=== PATIENT | male | born 1985 | race African-American/Black ===

== ENCOUNTER 2020-07-14 14:28 | Observation (INO) | payer OTHER ==
--- NOTE | 2020-07-14 15:32 | Event Note ---
ED Screening Note Date of service: 07/14/20 Time: 15:31 ED Screening Note: Patient sent here from urgent care for ascites Denies history of liver disease Admits to heavy alcohol intake Patient is jaundiced with icterus on exam Bilateral lower extremity swelling and abdominal distention noted This initial assessment/diagnostic orders/clinical plan/treatment(s) is/are subject to change based on patients health status, clinical progression and re- assessment by fellow clinical providers in the ED. Further treatment and workup at subsequent clinical providers discretion. Patient/guardian urged not to elope from the ED as their condition may be serious if not clinically assessed and managed. Initial orders include: Labs
[2020-07-14 16:17] LABS: Hematocrit 37.4 % (35.5-45.6); Hemoglobin 12.8 gm/dl (11.8-15.2); Red Blood Count 3.69 M/mm3 (3.65-5.03)
[2020-07-14 16:18] LABS: Alanine Aminotransferase 90 units/L (7-56); Albumin 2.6 g/dL (3.9-5); Bilirubin,Direct 4.5 mg/dL (0-0.2); Blood Urea Nitrogen 13 mg/dL (9-20); Calcium 7.8 mg/dL (8.4-10.2); Hemolysis Index 0; Mean Corpuscular HGB Conc 34 % (32-34); Mean Corpuscular Volume 101 fl (84-94); Platelet Count 211 K/mm3 (140-440); Red Cell Distribution Width 17.3 % (13.2-15.2)
[2020-07-14 16:24] LABS: Hepatitis B Surface Antigen Non-Reactive (Negative); Hepatitis C Virus Antibody Non-Reactive (NonReactive)
[2020-07-14 16:25] LABS: BUN/Creatinine Ratio 22
[2020-07-14 17:17] LABS: Anisocytosis 1+; Macrocytosis 1+; Platelet Estimate Consistent w Auto; Poikilocytosis 1+; Target Cells 1+; Total Cells Counted 100
[2020-07-14 17:38] LABS: Bilirubin,Urine MOD (Negative); Blood,Urine NEG (Negative); Color,Urine Amber (Yellow); Mucus,Urine FEW /HPF; Protein,Urine <15 mg/dL mg/dL (Negative)
[2020-07-14 17:41] LABS: Ictotest,Urine Positive (Negative)
[2020-07-14] MEDS ORDERED: FUROSEMIDE 40 MG/4 ML INJ IV ONE (20:21)
[2020-07-14] MEDS ORDERED: SODIUM CHLORIDE 0.9% 500 ML 500 ML IV ONE (20:30)
--- NOTE | 2020-07-14 20:30 | Emergency Department Report ---
ED Abdominal Pain HPI - General Chief Complaint: Abdominal Pain Stated Complaint: DIARRHEA/SWOLLEN LEGS/STOMACH Time Seen by Provider: 07/14/20 15:30 Source: patient Mode of arrival: Ambulatory Limitations: No Limitations - History of Present Illness Initial Comments: Patient is a 35-year-old [place]ian gentleman who is presenting with 1 month of generalized abdominal pain with distention. Patient states he is a heavy drinker and drinks approximately a sixpack of beer +5 shots of hard liquor daily. Patient states over the last month he has developed some abdominal distention and a full type sensation in his abdomen. Denies fevers chills nausea vomiting. Has had some mild diarrhea. He is still making urine. Patient states he does feel uncomfortable with his breathing but the shortness of breath is not consistent. Patient also is noted to have some leg swelling over the last several weeks as well. - Related Data Allergies Allergy/AdvReac Type Severity Reaction Status Date / Time No Known Allergies Allergy Unverified 07/14/20 15:27 ED Review of Systems ROS: Stated complaint: DIARRHEA/SWOLLEN LEGS/STOMACH Other details as noted in HPI Comment: All other systems reviewed and negative ED Past Medical Hx - Past Medical History Previous Medical History?: No - Surgical History Past Surgical History?: No ED Physical Exam - General Limitations: No Limitations General appearance: alert, in no apparent distress - Head Head exam: Present: atraumatic, normocephalic - Eye Eye exam: Present: PERRL, EOMI, scleral icterus - ENT ENT exam: Present: normal exam, mucous membranes moist - Neck Neck exam: Present: normal inspection - Respiratory Respiratory exam: Present: normal lung sounds bilaterally. Absent: respiratory distress, wheezes, rales, rhonchi - Cardiovascular Cardiovascular Exam: Present: regular rate, normal rhythm, normal heart sounds. Absent: systolic murmur, diastolic murmur, rubs, gallop - GI/Abdominal GI/Abdominal exam: Present: distended, tenderness, rigid, normal bowel sounds. Absent: guarding, rebound - Rectal Rectal exam: Present: deferred - Extremities Exam Extremities exam: Present: other (2+ lower extremity edema up to the level of the knees) - Back Exam Back exam: Present: normal inspection - Neurological Exam Neurological exam: Present: alert, oriented X3 - Psychiatric Psychiatric exam: Present: normal affect, normal mood - Skin Skin exam: Present: warm, dry, intact, normal color. Absent: rash ED Course Vital Signs 07/14/20 15:33 Temperature 98.4 F Pulse Rate 123 H Respiratory 18 Rate Blood Pressure 141/96 [Right] O2 Sat by Pulse 97 Oximetry ED Medical Decision Making - Lab Data Result diagrams: 07/14/20 15:33 07/14/20 15:33 Lab Results 07/14/20 07/14/20 07/14/20 Range/Units 15:33 15:33 15:33 WBC 5.0 (4.5-11.0) K/mm3 RBC 3.69 (3.65-5.03) M/mm3 Hgb 12.8 (11.8-15.2) gm/dl Hct 37.4 (35.5-45.6) % MCV 101 H (84-94) fl MCH 35 H (28-32) pg MCHC 34 (32-34) % RDW 17.3 H (13.2-15.2) % Plt Count 211 (140-440) K/mm3 Add Manual Diff Complete Total Counted 100 Seg Neuts % (Manual) 76.0 H (40.0-70.0) % Lymphocytes % (Manual) 17.0 (13.4-35.0) % Monocytes % (Manual) 5.0 (0.0-7.3) % Eosinophils % (Manual) 1.0 (0.0-4.3) % Basophils % (Manual) 1.0 (0.0-1.8) % Nucleated RBC % Not Reportable Seg Neutrophils # Man 3.8 (1.8-7.7) K/mm3 Band Neutrophils # 0.0 K/mm3 Lymphocytes # (Manual) 0.9 L (1.2-5.4) K/mm3 Abs React Lymphs (Man) 0.0 K/mm3 Monocytes # (Manual) 0.3 (0.0-0.8) K/mm3 Eosinophils # (Manual) 0.1 (0.0-0.4) K/mm3 Basophils # (Manual) 0.1 (0.0-0.1) K/mm3 Metamyelocytes # 0.0 K/mm3 Myelocytes # 0.0 K/mm3 Promyelocytes # 0.0 K/mm3 Blast Cells # 0.0 K/mm3 WBC Morphology Not Reportable Hypersegmented Neuts Not Reportable Hyposegmented Neuts Not Reportable Hypogranular Neuts Not Reportable Smudge Cells Not Reportable Toxic Granulation Not Reportable Toxic Vacuolation Not Reportable Dohle Bodies Not Reportable Pelger-Huet Anomaly Not Reportable Gerri Rods Not Reportable Platelet Estimate Consistent w auto Clumped Platelets Not Reportable Plt Clumps, EDTA Not Reportable Large Platelets Not Reportable Giant Platelets Not Reportable Platelet Satelliting Not Reportable Plt Morphology Comment Not Reportable RBC Morphology Not Reportable Dimorphic RBCs Not Reportable Polychromasia Not Reportable Hypochromasia Not Reportable Poikilocytosis 1+ Anisocytosis 1+ Microcytosis Not Reportable Macrocytosis 1+ Spherocytes Not Reportable Pappenheimer Bodies Not Reportable Sickle Cells Not Reportable Target Cells 1+ Tear Drop Cells Not Reportable Ovalocytes Not Reportable Helmet Cells Not Reportable [place] Bodies Not Reportable Martell Rings Not Reportable Cotton Plant Cells Not Reportable Bite Cells Not Reportable Crenated Cell Not Reportable Elliptocytes Not Reportable Acanthocytes (Spur) Not Reportable Rouleaux Not Reportable Hemoglobin C Crystals Not Reportable Schistocytes Not Reportable Malaria parasites Not Reportable Ori Bodies Not Reportable Hem Pathologist Commnt No Sodium 130 L (137-145) mmol/L Potassium 3.6 (3.6-5.0) mmol/L Chloride 96.0 L (98-107) mmol/L Carbon Dioxide 26 (22-30) mmol/L Anion Gap 12 mmol/L BUN 13 (9-20) mg/dL Creatinine 0.6 L (0.8-1.3) mg/dL Estimated GFR > 60 ml/min BUN/Creatinine Ratio 22 % Glucose 123 H (75-100) mg/dL Calcium 7.8 L (8.4-10.2) mg/dL Total Bilirubin 6.50 H (0.1-1.2) mg/dL Direct Bilirubin 4.5 H (0-0.2) mg/dL Indirect Bilirubin 2.0 mg/dL AST 208 H (5-40) units/L ALT 90 H (7-56) units/L Alkaline Phosphatase 501 H (35-129) units/L Troponin T < 0.010 (0.00-0.029) ng/mL Total Protein 5.2 L (6.3-8.2) g/dL Albumin 2.6 L (3.9-5) g/dL Albumin/Globulin Ratio 1.0 % Lipase 44 (13-60) units/L Urine Color (Yellow) Urine Turbidity (Clear) Urine pH (5.0-7.0) Ur Specific [place] (1.003-1.030) Urine Protein (Negative) mg/dL Urine Glucose (UA) (Negative) mg/dL Urine Ketones (Negative) mg/dL Urine Blood (Negative) Urine Nitrite (Negative) Urine Bilirubin (Negative) Urine Ictotest (Negative) Urine Urobilinogen (<2.0) mg/dL Ur Leukocyte Esterase (Negative) Urine WBC (Auto) (0.0-6.0) /HPF Urine RBC (Auto) (0.0-6.0) /HPF U Epithel Cells (Auto) (0-13.0) /HPF Urine Mucus /HPF Hepatitis A IgM Ab (NonReactive) Hep Bs Antigen (Negative) Hep B Core IgM Ab (NonReactive) Hepatitis C Antibody (NonReactive) 07/14/20 07/14/20 Range/Units 15:33 17:09 WBC (4.5-11.0) K/mm3 RBC (3.65-5.03) M/mm3 Hgb (11.8-15.2) gm/dl Hct (35.5-45.6) % MCV (84-94) fl MCH (28-32) pg MCHC (32-34) % RDW (13.2-15.2) % Plt Count (140-440) K/mm3 Add Manual Diff Total Counted Seg Neuts % (Manual) (40.0-70.0) % Lymphocytes % (Manual) (13.4-35.0) % Monocytes % (Manual) (0.0-7.3) % Eosinophils % (Manual) (0.0-4.3) % Basophils % (Manual) (0.0-1.8) % Nucleated RBC % Seg Neutrophils # Man (1.8-7.7) K/mm3 Band Neutrophils # K/mm3 Lymphocytes # (Manual) (1.2-5.4) K/mm3 Abs React Lymphs (Man) K/mm3 Monocytes # (Manual) (0.0-0.8) K/mm3 Eosinophils # (Manual) (0.0-0.4) K/mm3 Basophils # (Manual) (0.0-0.1) K/mm3 Metamyelocytes # K/mm3 Myelocytes # K/mm3 Promyelocytes # K/mm3 Blast Cells # K/mm3 WBC Morphology Hypersegmented Neuts Hyposegmented Neuts Hypogranular Neuts Smudge Cells Toxic Granulation Toxic Vacuolation Dohle Bodies Pelger-Huet Anomaly Gerri Rods Platelet Estimate Clumped Platelets Plt Clumps, EDTA Large Platelets Giant Platelets Platelet Satelliting Plt Morphology Comment RBC Morphology Dimorphic RBCs Polychromasia Hypochromasia Poikilocytosis Anisocytosis Microcytosis Macrocytosis Spherocytes Pappenheimer Bodies Sickle Cells Target Cells Tear Drop Cells Ovalocytes Helmet Cells Santamaria-[place] Bodies Martell Rings Cotton Plant Cells Bite Cells Crenated Cell Elliptocytes Acanthocytes (Spur) Rouleaux Hemoglobin C Crystals Schistocytes Malaria parasites Ori Bodies Hem Pathologist Commnt Sodium (137-145) mmol/L Potassium (3.6-5.0) mmol/L Chloride (98-107) mmol/L Carbon Dioxide (22-30) mmol/L Anion Gap mmol/L BUN (9-20) mg/dL Creatinine (0.8-1.3) mg/dL Estimated GFR ml/min BUN/Creatinine Ratio % Glucose (75-100) mg/dL Calcium (8.4-10.2) mg/dL Total Bilirubin (0.1-1.2) mg/dL Direct Bilirubin (0-0.2) mg/dL Indirect Bilirubin mg/dL AST (5-40) units/L ALT (7-56) units/L Alkaline Phosphatase (35-129) units/L Troponin T (0.00-0.029) ng/mL Total Protein (6.3-8.2) g/dL Albumin (3.9-5) g/dL Albumin/Globulin Ratio % Lipase (13-60) units/L Urine Color [place] (Yellow) Urine Turbidity Clear (Clear) Urine pH 5.0 (5.0-7.0) Ur Specific [place] 1.026 (1.003-1.030) Urine Protein <15 mg/dl (Negative) mg/dL Urine Glucose (UA) Neg (Negative) mg/dL Urine Ketones Neg (Negative) mg/dL Urine Blood Neg (Negative) Urine Nitrite Neg (Negative) Urine Bilirubin Mod (Negative) Urine Ictotest Positive (Negative) Urine Urobilinogen 4.0 (<2.0) mg/dL Ur Leukocyte Esterase Neg (Negative) Urine WBC (Auto) 3.0 (0.0-6.0) /HPF Urine RBC (Auto) 1.0 (0.0-6.0) /HPF U Epithel Cells (Auto) < 1.0 (0-13.0) /HPF Urine Mucus Few /HPF Hepatitis A IgM Ab Non-reactive (NonReactive) Hep Bs Antigen Non-reactive (Negative) Hep B Core IgM Ab Non-reactive (NonReactive) Hepatitis C Antibody Non-reactive (NonReactive) - Radiology Data Ordering Physician: ATIF SUMMERS MD Date of Service: 07/14/20 Procedure(s): CT abdomen pelvis w con Accession Number(s): [id number] cc: ATIF SUMMERS MD CT abdomen pelvis w con INDICATION: abd pain with distension. TECHNIQUE: All CT scans at this location are performed using CT dose reduction for ALARA by means of automated exposure control. COMPARISON: None available. FINDINGS: Bibasilar parenchymal density is probably atelectasis. However, there are very small bilateral pleural effusions. Mild ascites throughout the abdomen and pelvis. Gallbladder is mildly distended, with no appreciable stones. Liver, spleen, pancreas, kidneys and adrenals are negative. Abdominal aorta is normal in size. No adenopathy. Pelvis Urinary bladder is almost completely collapsed. Ascites occupies most of the pelvis. There is also diffuse mesenteric edema. IMPRESSION: 1. Moderate ascites and mesenteric edema, of uncertain etiology. Signer Name: Sandip Garcia MD Signed: 07/14/2020 8:48 PM Workstation Name: [id number] - Medical Decision Making Patient with new onset alcoholic hepatitis. Patient with some third spacing with ascites and lower extremity edema. Patient to be admitted to the hospitalist service for further management. Critical care attestation.: If time is entered above; I have spent that time in minutes in the direct care of this critically ill patient, excluding procedure time. ED Disposition Clinical Impression: Alcoholic hepatitis with ascites, Hyponatremia, Alcohol abuse Disposition: OP ADMIT IP TO THIS HOSP Is pt being admited?: Yes Does the pt Need Aspirin: No Condition: Serious Time of Disposition: 21:39
[2020-07-14] MEDS ORDERED: KETOROLAC 30 MG/1 ML INJ IV ONE (20:31)
--- NOTE | 2020-07-14 20:52 | Cat Scan Report ---
CT abdomen pelvis w con INDICATION: abd pain with distension. TECHNIQUE: All CT scans at this location are performed using CT dose reduction for ALARA by means of automated e xposure control. COMPARISON: None available. FINDINGS: Bibasilar parenchymal density is probably atelectasis. However, there are very small bilateral pleura l effusions. Mild ascites throughout the abdomen and pelvis. Gallbladder is mildly distended, with no appreciable stones. Liver, spleen, pancreas, kidneys and adrenals are negative. Abdominal aorta is normal in size . No adenopathy. Pelvis Urinary bladder is almost completely collapsed. Ascites occupies most of the pelvis. There is also di ffuse mesenteric edema. IMPRESSION: 1. Moderate ascites and mesenteric edema, of uncertain etiology. Signer Name: Sandip Garcia MD Signed: 07/14/2020 8:48 PM Workstation Name: [id number]
--- NOTE | 2020-07-14 21:09 | XRay Report ---
CHEST 1 VIEW INDICATION: dyspnea COMPARISON: None FINDINGS: Support devices: None Heart: Normal Lungs/Pleura: No acute pulmonary or pleural findings. Linear density in the left base is most suggest grayson of atelectasis or even scarring. IMPRESSION: 1. No convincing evidence of acute disease. It may be worthwhile to follow-up with chest radiograph i n 2-3 weeks to evaluate the left basilar process. Signer Name: Sandip Garcia MD Signed: 07/14/2020 9:04 PM Workstation Name: [id number]
[2020-07-14 21:30] LABS: INR 1.18 (0.87-1.13)
[2020-07-14 21:31] LABS: Partial Thromboplastin Time 29.7 Sec. (24.2-36.6)
[2020-07-14] MEDS ORDERED: LORazepam 2 MG TAB PO PRN ×2 (21:40)
[2020-07-14] MEDS ORDERED: LORazepam 2 MG/ML VIAL IV PRN (21:40)
[2020-07-14] MEDS ORDERED: ONDANSETRON 4 MG/2 ML INJ IV PRN (22:02)
[2020-07-14] MEDS ORDERED: MORPHINE 2 MG/1 ML INJ IV PRN (22:02)
[2020-07-14] MEDS ORDERED: MAGNESIUM HYDROXIDE (MOM) ORAL LIQD UDC PO PRN (22:02)
--- NOTE | 2020-07-14 22:15 | History and Physical Report ---
History of Present Illness Date of examination: 07/14/20 Date of admission: 07/14/2020 Chief complaint: Abdominal Pain Lower extremity swelling History of present illness: Patient is a 35-year-old [place] male presenting to the emergency room today complaining of abdominal distention and pain. Patient states this has been ongoing for about a month. He has also been having lower extremity swelling. Patient drinks alcohol almost on a daily basis. He is drinks about sixpack of beer and 5 shots of liquor daily. His last alcohol intake was about 2 days ago. Patient denies any fever or chills, no chest pain, no nausea vomiting, no diarrhea, no hematuria or dysuria. He denies any headache or dizziness. He has been uncomfortable with his breathing because of the abdominal swelling. Work-up in the emergency room today, chest x-ray reveals:No convincing evidence of acute disease. It may be worthwhile to follow-up with chest radiograph in 2-3 weeks to evaluate the left basilar process. CT scan of the abdomen and pelvis: Moderate ascites and mesenteric edema, of uncertain etiology. Labs reveals elevated bilirubin and liver enzymes. Mild hyponatremia. Patient be admitted for abdominal distention secondary to ascites and the hyponatremia. Past History Past Medical History: No medical history Past Surgical History: No surgical history Social history: smoking (Patient smokes about half a pack of cigarette daily.), alcohol abuse (Patient drinks on a daily basis. He drinks about 5-6 packs of beer daily +5 shots of hard liquor.) Family history: no significant family history Medications and Allergies Allergies Allergy/AdvReac Type Severity Reaction Status Date / Time No Known Allergies Allergy Verified 07/14/20 22:12 Active Meds: Active Medications Lorazepam (Lorazepam 2 Mg Tab) 2 mg PO Q1HR PRN PRN Reason: CIWA-Ar 8-15 Lorazepam (Lorazepam 2 Mg Tab) 4 mg PO Q1HR PRN PRN Reason: CIWA-Ar 16-25 Lorazepam (Lorazepam 2 Mg/Ml Vial) 4 mg IV Q15MIN PRN PRN Reason: CIWA-Ar >25 Magnesium Hydroxide (Magnesium Hydroxide (Mom) Oral Liqd Udc) 30 ml PO Q4H PRN PRN Reason: Constipation Morphine Sulfate (Morphine 2 Mg/1 Ml Inj) 2 mg IV Q4H PRN PRN Reason: Pain, Moderate (4-6) Ondansetron HCl (Ondansetron 4 Mg/2 Ml Inj) 4 mg IV Q8H PRN PRN Reason: Nausea And Vomiting Sodium Chloride (Sodium Chloride 0.9% 10 Ml Flush Syringe) 10 ml IV BID SUNDAR Sodium Chloride (Sodium Chloride 0.9% 10 Ml Flush Syringe) 10 ml IV PRN PRN PRN Reason: LINE FLUSH Review of Systems Constitutional: no fever, no chills Ears, nose, mouth and throat: no nasal congestion, no sore throat Cardiovascular: no chest pain, no palpitations Respiratory: no cough, no shortness of breath Gastrointestinal: abdominal pain, no nausea, no vomiting, no diarrhea Genitourinary Male: no dysuria, no hematuria, no flank pain, no polyuria Musculoskeletal: no neck pain, no low back pain Integumentary: no rash, no pruritis Neurological: no headaches, no confusion Psychiatric: no anxiety, no depression Exam - Constitutional Vitals: Temp Pulse Resp BP Pulse Ox 98.7 F 99 H 18 139/90 99 07/14/20 21:49 07/14/20 21:49 07/14/20 21:49 07/14/20 21:49 07/14/20 21:49 General appearance: Present: no acute distress, well-nourished - EENT Eyes: Present: PERRL, EOM intact, scleral icterus ENT: hearing intact, clear oral mucosa, dentition normal - Neck Neck: Present: supple, normal ROM - Respiratory Respiratory effort: normal Respiratory: bilateral: CTA - Cardiovascular Rhythm: regular Heart Sounds: Present: S1 & S2. Absent: gallop, systolic murmur, diastolic murmur, rub - Extremities Extremities: no ischemia, pulses intact, pulses symmetrical, Full ROM Extremity abnormal: edema (2+) Peripheral Pulses: within normal limits - Abdominal General gastrointestinal: Present: soft, tender (Epigastric tenderness), distended, normal bowel sounds. Absent: mass - Integumentary Integumentary: Present: clear, warm, dry. Absent: rash - Musculoskeletal Musculoskeletal: strength equal bilaterally - Psychiatric Psychiatric: appropriate mood/affect, intact judgment & insight, memory intact, cooperative - Neurologic Neurologic: CNII-XII intact, no focal deficits, moves all extremities HEART Score - HEART Score Troponin: Troponin T < 0.010 ng/mL (0.00-0.029) 07/14/20 15:33 Results - Labs CBC & Chem 7: 07/15/20 08:18 07/15/20 08:18 Labs: Abnormal lab results 07/14/20 07/14/20 07/14/20 Range/Units 15:33 15:33 20:46 MCV 101 H (84-94) fl MCH 35 H (28-32) pg RDW 17.3 H (13.2-15.2) % Seg Neuts % (Manual) 76.0 H (40.0-70.0) % Lymphocytes # (Manual) 0.9 L (1.2-5.4) K/mm3 INR 1.18 H (0.87-1.13) Sodium 130 L (137-145) mmol/L Chloride 96.0 L (98-107) mmol/L Creatinine 0.6 L (0.8-1.3) mg/dL Glucose 123 H (75-100) mg/dL Calcium 7.8 L (8.4-10.2) mg/dL Total Bilirubin 6.50 H (0.1-1.2) mg/dL Direct Bilirubin 4.5 H (0-0.2) mg/dL AST 208 H (5-40) units/L ALT 90 H (7-56) units/L Alkaline Phosphatase 501 H (35-129) units/L Total Protein 5.2 L (6.3-8.2) g/dL Albumin 2.6 L (3.9-5) g/dL Plasma/Serum Alcohol (0-0.07) % 07/14/20 Range/Units 20:46 MCV (84-94) fl MCH (28-32) pg RDW (13.2-15.2) % Seg Neuts % (Manual) (40.0-70.0) % Lymphocytes # (Manual) (1.2-5.4) K/mm3 INR (0.87-1.13) Sodium (137-145) mmol/L Chloride (98-107) mmol/L Creatinine (0.8-1.3) mg/dL Glucose (75-100) mg/dL Calcium (8.4-10.2) mg/dL Total Bilirubin (0.1-1.2) mg/dL Direct Bilirubin (0-0.2) mg/dL AST (5-40) units/L ALT (7-56) units/L Alkaline Phosphatase (35-129) units/L Total Protein (6.3-8.2) g/dL Albumin (3.9-5) g/dL Plasma/Serum Alcohol 0.13 H (0-0.07) % Assessment and Plan - Patient Problems (1) Alcoholic hepatitis with ascites Current Visit: Yes Status: Acute Plan to address problem: We will monitor liver enzymes. We will place a consult to gastroenterology for evaluation. Patient may need paracentesis. Consult placed to interventional radiology for evaluation. (2) Alcohol abuse Current Visit: Yes Status: Acute Plan to address problem: We will monitor patient for alcohol withdrawal symptoms. (3) Hyponatremia Current Visit: Yes Status: Acute Plan to address problem: Possibly secondary to the alcohol abuse. Will monitor chemistry. (4) DVT prophylaxis Current Visit: Yes Status: Acute Plan to address problem: Patient placed on sequential compression device. (5) Full code status Current Visit: Yes Status: Acute Plan to address problem: Patient is a full code.
[2020-07-14 23:01] LABS: Albumin 2.6 g/dL (3.9-5); Bilirubin,Direct 4.3 mg/dL (0-0.2)
[2020-07-15 09:01] LABS: INR 1.08 (0.87-1.13)
[2020-07-15 09:02] LABS: Hematocrit 35.2 % (35.5-45.6); Hemoglobin 12.4 gm/dl (11.8-15.2); Mean Corpuscular HGB Conc 35 % (32-34); Mean Corpuscular Volume 101 fl (84-94); Platelet Count 212 K/mm3 (140-440); Red Blood Count 3.49 M/mm3 (3.65-5.03); Red Cell Distribution Width 18.1 % (13.2-15.2)
[2020-07-15 09:11] LABS: Blood Urea Nitrogen 12 mg/dL (9-20); Calcium 7.8 mg/dL (8.4-10.2); Hemolysis Index 0
[2020-07-15 09:13] LABS: BUN/Creatinine Ratio 20
--- NOTE | 2020-07-15 09:58 | Consultation ---
History of Present Illness - Reason for Consult Consult date: 07/15/20 Ascites - History of Present Illness Patient with a history of alcohol abuse and new onset ascites. CT scan reviewed and the patient has moderate ascites. He complains of subxiphoid abdominal pain. Abdomen is otherwise nontender to palpation. Patient has never undergone paracentesis. He is not under the care of a weir fisherman. Past History Past Medical History: No medical history Past Surgical History: No surgical history Social history: smoking (Patient smokes about half a pack of cigarette daily.), alcohol abuse (Patient drinks on a daily basis. He drinks about 5-6 packs of beer daily +5 shots of hard liquor.) Family history: no significant family history Medications and Allergies Allergies Allergy/AdvReac Type Severity Reaction Status Date / Time No Known Allergies Allergy Verified 07/14/20 22:12 Active Meds: Active Medications Lorazepam (Lorazepam 2 Mg Tab) 2 mg PO Q1HR PRN PRN Reason: CIWA-Ar 8-15 Lorazepam (Lorazepam 2 Mg Tab) 4 mg PO Q1HR PRN PRN Reason: CIWA-Ar 16-25 Lorazepam (Lorazepam 2 Mg/Ml Vial) 4 mg IV Q15MIN PRN PRN Reason: CIWA-Ar >25 Magnesium Hydroxide (Magnesium Hydroxide (Mom) Oral Liqd Udc) 30 ml PO Q4H PRN PRN Reason: Constipation Morphine Sulfate (Morphine 2 Mg/1 Ml Inj) 2 mg IV Q4H PRN PRN Reason: Pain, Moderate (4-6) Ondansetron HCl (Ondansetron 4 Mg/2 Ml Inj) 4 mg IV Q8H PRN PRN Reason: Nausea And Vomiting Sodium Chloride (Sodium Chloride 0.9% 10 Ml Flush Syringe) 10 ml IV BID SUNDAR Sodium Chloride (Sodium Chloride 0.9% 10 Ml Flush Syringe) 10 ml IV PRN PRN PRN Reason: LINE FLUSH Review of Systems All systems: negative Exam - Constitutional Vitals: Temp Pulse Resp BP Pulse Ox 98.1 F 84 18 133/98 98 07/15/20 02:41 07/15/20 08:32 07/15/20 02:41 07/15/20 02:41 07/15/20 02:41 General appearance: Present: no acute distress - EENT Eyes: Present: EOM intact ENT: hearing intact - Neck Neck: Present: normal ROM - Abdominal General gastrointestinal: Present: non-tender, distended - Psychiatric Psychiatric: cooperative Results - Labs CBC & Chem 7: 07/15/20 08:18 07/15/20 08:18 Labs: Abnormal lab results 07/14/20 07/14/20 07/14/20 Range/Units 15:33 15:33 20:46 RBC (3.65-5.03) M/mm3 Hct (35.5-45.6) % MCV 101 H (84-94) fl MCH 35 H (28-32) pg MCHC (32-34) % RDW 17.3 H (13.2-15.2) % Seg Neuts % (Manual) 76.0 H (40.0-70.0) % Lymphocytes # (Manual) 0.9 L (1.2-5.4) K/mm3 INR 1.18 H (0.87-1.13) Sodium 130 L (137-145) mmol/L Potassium (3.6-5.0) mmol/L Chloride 96.0 L (98-107) mmol/L Creatinine 0.6 L (0.8-1.3) mg/dL Glucose 123 H (75-100) mg/dL Calcium 7.8 L (8.4-10.2) mg/dL Total Bilirubin 6.50 H (0.1-1.2) mg/dL Direct Bilirubin 4.5 H (0-0.2) mg/dL AST 208 H (5-40) units/L ALT 90 H (7-56) units/L Alkaline Phosphatase 501 H (35-129) units/L Total Protein 5.2 L (6.3-8.2) g/dL Albumin 2.6 L (3.9-5) g/dL Plasma/Serum Alcohol (0-0.07) % 07/14/20 07/14/20 07/15/20 Range/Units 20:46 20:46 08:18 RBC 3.49 L (3.65-5.03) M/mm3 Hct 35.2 L (35.5-45.6) % MCV 101 H (84-94) fl MCH 36 H (28-32) pg MCHC 35 H (32-34) % RDW 18.1 H (13.2-15.2) % Seg Neuts % (Manual) (40.0-70.0) % Lymphocytes # (Manual) (1.2-5.4) K/mm3 INR (0.87-1.13) Sodium (137-145) mmol/L Potassium (3.6-5.0) mmol/L Chloride (98-107) mmol/L Creatinine (0.8-1.3) mg/dL Glucose (75-100) mg/dL Calcium (8.4-10.2) mg/dL Total Bilirubin 6.60 H (0.1-1.2) mg/dL Direct Bilirubin 4.3 H (0-0.2) mg/dL AST 211 H (5-40) units/L ALT 87 H (7-56) units/L Alkaline Phosphatase 533 H (35-129) units/L Total Protein 5.0 L (6.3-8.2) g/dL Albumin 2.6 L (3.9-5) g/dL Plasma/Serum Alcohol 0.13 H (0-0.07) % 07/15/20 Range/Units 08:18 RBC (3.65-5.03) M/mm3 Hct (35.5-45.6) % MCV (84-94) fl MCH (28-32) pg MCHC (32-34) % RDW (13.2-15.2) % Seg Neuts % (Manual) (40.0-70.0) % Lymphocytes # (Manual) (1.2-5.4) K/mm3 INR (0.87-1.13) Sodium 132 L (137-145) mmol/L Potassium 3.4 L (3.6-5.0) mmol/L Chloride 95.9 L (98-107) mmol/L Creatinine 0.6 L (0.8-1.3) mg/dL Glucose 104 H (75-100) mg/dL Calcium 7.8 L (8.4-10.2) mg/dL Total Bilirubin (0.1-1.2) mg/dL Direct Bilirubin (0-0.2) mg/dL AST (5-40) units/L ALT (7-56) units/L Alkaline Phosphatase (35-129) units/L Total Protein (6.3-8.2) g/dL Albumin (3.9-5) g/dL Plasma/Serum Alcohol (0-0.07) % - Imaging and Cardiology CT scan - abdomen: image reviewed CT scan - pelvis: image reviewed Assessment and Plan Patient with history of alcohol abuse and new onset ascites. GI has been consulted. Patient CT scan demonstrates sequela of portal hypertension with moderate amount of ascites. He will be scheduled for paracentesis tomorrow with diagnostic radiology.
[2020-07-15 10:41] LABS: Anisocytosis 1+; Macrocytosis 1+; Poikilocytosis 1+; Target Cells 1+; Total Cells Counted 100
[2020-07-15 10:42] LABS: Platelet Estimate Consistent w Auto
--- NOTE | 2020-07-15 11:02 | Gastroenterology Consultation ---
History of Present Illness - Reason for Consult Consult date: 07/15/20 Ascites Requesting physician: JEFF TEIXEIRA - History of Present Illness This is a pleasant 35-year-old admitted with abdominal distention and pain. Patient states this has been ongoing for about a month. He has also been having lower extremity swelling for the past 2 to 3 days Patient drinks alcohol almost on a daily basis. He is drinks about sixpack of beer and 4-5 shots of liquor daily. He reports however for New Year's he had friends over and they all drink shots, he could not quantify how much alcohol he drank but said it was a lot Reports he has been drinking for the past 14 years other than a 1 month period where he was away working in [place] where he did not drink but once he came back here to his friends who also drink he started drinking again He reports since then abdominal swelling and lower extremity swelling getting worse quicker and accompanied by yellowing of the eyes. He reports never having had experienced before Reports epigastric abdominal pain constant worse with palpation better with nothing duration days associated with abdominal distention sharp in quality nonradiating, stable CT scan of the abdomen and pelvis: Moderate ascites and mesenteric edema, of uncertain etiology. Labs reveals elevated bilirubin and liver enzymes. Mild hyponatremia. Obtained/updated/reviewed patient's current medications Past History Past Medical History: No medical history, other (EtOh abuse) Past Surgical History: No surgical history Social history: smoking (Patient smokes about half a pack of cigarette daily.), alcohol abuse (Patient drinks on a daily basis. He drinks about 5-6 packs of beer daily +5 shots of hard liquor.) Family history: no significant family history Medications and Allergies Allergies Allergy/AdvReac Type Severity Reaction Status Date / Time No Known Allergies Allergy Verified 07/14/20 22:12 Active Meds: Active Medications Lorazepam (Lorazepam 2 Mg Tab) 2 mg PO Q1HR PRN PRN Reason: CIWA-Ar 8-15 Last Admin: 07/15/20 10:13 Dose: 2 mg Documented by: Lorazepam (Lorazepam 2 Mg Tab) 4 mg PO Q1HR PRN PRN Reason: CIWA-Ar 16-25 Lorazepam (Lorazepam 2 Mg/Ml Vial) 4 mg IV Q15MIN PRN PRN Reason: CIWA-Ar >25 Magnesium Hydroxide (Magnesium Hydroxide (Mom) Oral Liqd Udc) 30 ml PO Q4H PRN PRN Reason: Constipation Morphine Sulfate (Morphine 2 Mg/1 Ml Inj) 2 mg IV Q4H PRN PRN Reason: Pain, Moderate (4-6) Ondansetron HCl (Ondansetron 4 Mg/2 Ml Inj) 4 mg IV Q8H PRN PRN Reason: Nausea And Vomiting Sodium Chloride (Sodium Chloride 0.9% 10 Ml Flush Syringe) 10 ml IV BID SUNDAR Last Admin: 07/15/20 10:13 Dose: 10 ml Documented by: Sodium Chloride (Sodium Chloride 0.9% 10 Ml Flush Syringe) 10 ml IV PRN PRN PRN Reason: LINE FLUSH Review of Systems - Review of Systems All systems: negative (10 Systems reviewed and negative except as mentioned above in the history of present illness) Exam - Constitutional Vital Signs: Temp Pulse Resp BP Pulse Ox 98.1 F 84 18 133/98 98 07/15/20 02:41 07/15/20 08:32 07/15/20 02:41 07/15/20 02:41 07/15/20 02:41 General appearance: other (Fetor hepaticus, mildly jaundiced) - EENT Eyes: scleral icterus - Neck Neck: supple - Respiratory Respiratory effort: normal - Cardiovascular Rhythm: regular Extremity abnormal: edema, clubbing - Gastrointestinal General gastrointestinal: Present: other (Slight fluid wave, tense, tender to palpation in the upper abdominal area) - Integumentary Integumentary: Present: dry, jaundice - Musculoskeletal Musculoskeletal: other (Clubbing of the digits otherwise normal) - Neurologic Neurological: alert and oriented x3 - Psychiatric Psychiatric: appropriate mood/affect - Labs CBC & Chem 7: 07/15/20 08:18 07/15/20 08:18 Lab Results: Laboratory Results - last 24 hr 07/14/20 07/14/20 07/14/20 15:33 15:33 15:33 WBC 5.0 RBC 3.69 Hgb 12.8 Hct 37.4 MCV 101 H MCH 35 H MCHC 34 RDW 17.3 H Plt Count 211 Add Manual Diff Complete Total Counted 100 Seg Neuts % (Manual) 76.0 H Lymphocytes % (Manual) 17.0 Monocytes % (Manual) 5.0 Eosinophils % (Manual) 1.0 Basophils % (Manual) 1.0 Nucleated RBC % Not Reportable Seg Neutrophils # Man 3.8 Band Neutrophils # 0.0 Lymphocytes # (Manual) 0.9 L Abs React Lymphs (Man) 0.0 Monocytes # (Manual) 0.3 Eosinophils # (Manual) 0.1 Basophils # (Manual) 0.1 Metamyelocytes # 0.0 Myelocytes # 0.0 Promyelocytes # 0.0 Blast Cells # 0.0 WBC Morphology Not Reportable Hypersegmented Neuts Not Reportable Hyposegmented Neuts Not Reportable Hypogranular Neuts Not Reportable Smudge Cells Not Reportable Toxic Granulation Not Reportable Toxic Vacuolation Not Reportable Dohle Bodies Not Reportable Pelger-Huet Anomaly Not Reportable Gerri Rods Not Reportable Platelet Estimate Consistent w auto Clumped Platelets Not Reportable Plt Clumps, EDTA Not Reportable Large Platelets Not Reportable Giant Platelets Not Reportable Platelet Satelliting Not Reportable Plt Morphology Comment Not Reportable RBC Morphology Not Reportable Dimorphic RBCs Not Reportable Polychromasia Not Reportable Hypochromasia Not Reportable Poikilocytosis 1+ Anisocytosis 1+ Microcytosis Not Reportable Macrocytosis 1+ Spherocytes Not Reportable Pappenheimer Bodies Not Reportable Sickle Cells Not Reportable Target Cells 1+ Tear Drop Cells Not Reportable Ovalocytes Not Reportable Helmet Cells Not Reportable Santamaria-Luling Bodies Not Reportable Douglas Rings Not Reportable [place] Cells Not Reportable Bite Cells Not Reportable Crenated Cell Not Reportable Elliptocytes Not Reportable Acanthocytes (Spur) Not Reportable Rouleaux Not Reportable Hemoglobin C Crystals Not Reportable Schistocytes Not Reportable Malaria parasites Not Reportable Ori Bodies Not Reportable Hem Pathologist Commnt No PT INR APTT Sodium 130 L Potassium 3.6 Chloride 96.0 L Carbon Dioxide 26 Anion Gap 12 BUN 13 Creatinine 0.6 L Estimated GFR > 60 BUN/Creatinine Ratio 22 Glucose 123 H Calcium 7.8 L Total Bilirubin 6.50 H Direct Bilirubin 4.5 H Indirect Bilirubin 2.0 AST 208 H ALT 90 H Alkaline Phosphatase 501 H Troponin T < 0.010 Total Protein 5.2 L Albumin 2.6 L Albumin/Globulin Ratio 1.0 Lipase 44 Urine Color Urine Turbidity Urine pH Ur Specific [place] Urine Protein Urine Glucose (UA) Urine Ketones Urine Blood Urine Nitrite Urine Bilirubin Urine Ictotest Urine Urobilinogen Ur Leukocyte Esterase Urine WBC (Auto) Urine RBC (Auto) U Epithel Cells (Auto) Urine Mucus Plasma/Serum Alcohol Hepatitis A IgM Ab Hep Bs Antigen Hep B Core IgM Ab Hepatitis C Antibody 07/14/20 07/14/20 07/14/20 15:33 17:09 20:46 WBC RBC Hgb Hct MCV MCH MCHC RDW Plt Count Add Manual Diff Total Counted Seg Neuts % (Manual) Lymphocytes % (Manual) Monocytes % (Manual) Eosinophils % (Manual) Basophils % (Manual) Nucleated RBC % Seg Neutrophils # Man Band Neutrophils # Lymphocytes # (Manual) Abs React Lymphs (Man) Monocytes # (Manual) Eosinophils # (Manual) Basophils # (Manual) Metamyelocytes # Myelocytes # Promyelocytes # Blast Cells # WBC Morphology Hypersegmented Neuts Hyposegmented Neuts Hypogranular Neuts Smudge Cells Toxic Granulation Toxic Vacuolation Dohle Bodies Pelger-Huet Anomaly Gerri Rods Platelet Estimate Clumped Platelets Plt Clumps, EDTA Large Platelets Giant Platelets Platelet Satelliting Plt Morphology Comment RBC Morphology Dimorphic RBCs Polychromasia Hypochromasia Poikilocytosis Anisocytosis Microcytosis Macrocytosis Spherocytes Pappenheimer Bodies Sickle Cells Target Cells Tear Drop Cells Ovalocytes Helmet Cells Santamaria-Luling Bodies Douglas Rings [place] Cells Bite Cells Crenated Cell Elliptocytes Acanthocytes (Spur) Rouleaux Hemoglobin C Crystals Schistocytes Malaria parasites Ori Bodies Hem Pathologist Commnt PT 14.8 INR 1.18 H APTT 29.7 Sodium Potassium Chloride Carbon Dioxide Anion Gap BUN Creatinine Estimated GFR BUN/Creatinine Ratio Glucose Calcium Total Bilirubin Direct Bilirubin Indirect Bilirubin AST ALT Alkaline Phosphatase Troponin T Total Protein Albumin Albumin/Globulin Ratio Lipase Urine Color [place] Urine Turbidity Clear Urine pH 5.0 Ur Specific [place] 1.026 Urine Protein <15 mg/dl Urine Glucose (UA) Neg Urine Ketones Neg Urine Blood Neg Urine Nitrite Neg Urine Bilirubin Mod Urine Ictotest Positive Urine Urobilinogen 4.0 Ur Leukocyte Esterase Neg Urine WBC (Auto) 3.0 Urine RBC (Auto) 1.0 U Epithel Cells (Auto) < 1.0 Urine Mucus Few Plasma/Serum Alcohol Hepatitis A IgM Ab Non-reactive Hep Bs Antigen Non-reactive Hep B Core IgM Ab Non-reactive Hepatitis C Antibody Non-reactive 07/14/20 07/14/20 07/15/20 20:46 20:46 08:18 WBC 5.3 RBC 3.49 L Hgb 12.4 Hct 35.2 L MCV 101 H MCH 36 H MCHC 35 H RDW 18.1 H Plt Count 212 Add Manual Diff Complete Total Counted 100 Seg Neuts % (Manual) 76.0 H Lymphocytes % (Manual) 10.0 L Monocytes % (Manual) 10.0 H Eosinophils % (Manual) 2.0 Basophils % (Manual) 2.0 H Nucleated RBC % Not Reportable Seg Neutrophils # Man 4.0 Band Neutrophils # 0.0 Lymphocytes # (Manual) 0.5 L Abs React Lymphs (Man) 0.0 Monocytes # (Manual) 0.5 Eosinophils # (Manual) 0.1 Basophils # (Manual) 0.1 Metamyelocytes # 0.0 Myelocytes # 0.0 Promyelocytes # 0.0 Blast Cells # 0.0 WBC Morphology Not Reportable Hypersegmented Neuts Not Reportable Hyposegmented Neuts Not Reportable Hypogranular Neuts Not Reportable Smudge Cells Not Reportable Toxic Granulation Not Reportable Toxic Vacuolation Not Reportable Dohle Bodies Not Reportable Pelger-Huet Anomaly Not Reportable Gerri Rods Not Reportable Platelet Estimate Consistent w auto Clumped Platelets Not Reportable Plt Clumps, EDTA Not Reportable Large Platelets Not Reportable Giant Platelets Not Reportable Platelet Satelliting Not Reportable Plt Morphology Comment Not Reportable RBC Morphology Not Reportable Dimorphic RBCs Not Reportable Polychromasia Not Reportable Hypochromasia Not Reportable Poikilocytosis 1+ Anisocytosis 1+ Microcytosis Not Reportable Macrocytosis 1+ Spherocytes Not Reportable Pappenheimer Bodies Not Reportable Sickle Cells Not Reportable Target Cells 1+ Tear Drop Cells Not Reportable Ovalocytes Not Reportable Helmet Cells Not Reportable Santamaria-Luling Bodies Not Reportable [place] Rings Not Reportable [place] Cells Not Reportable Bite Cells Not Reportable Crenated Cell Not Reportable Elliptocytes Not Reportable Acanthocytes (Spur) Not Reportable Rouleaux Not Reportable Hemoglobin C Crystals Not Reportable Schistocytes Not Reportable Malaria parasites Not Reportable Ori Bodies Not Reportable Hem Pathologist Commnt No PT INR APTT Sodium Potassium Chloride Carbon Dioxide Anion Gap BUN Creatinine Estimated GFR BUN/Creatinine Ratio Glucose Calcium Total Bilirubin 6.60 H Direct Bilirubin 4.3 H Indirect Bilirubin 2.3 AST 211 H ALT 87 H Alkaline Phosphatase 533 H Troponin T Total Protein 5.0 L Albumin 2.6 L Albumin/Globulin Ratio 1.1 Lipase Urine Color Urine Turbidity Urine pH Ur Specific [place] Urine Protein Urine Glucose (UA) Urine Ketones Urine Blood Urine Nitrite Urine Bilirubin Urine Ictotest Urine Urobilinogen Ur Leukocyte Esterase Urine WBC (Auto) Urine RBC (Auto) U Epithel Cells (Auto) Urine Mucus Plasma/Serum Alcohol 0.13 H Hepatitis A IgM Ab Hep Bs Antigen Hep B Core IgM Ab Hepatitis C Antibody 07/15/20 07/15/20 08:18 08:18 WBC RBC Hgb Hct MCV MCH MCHC RDW Plt Count Add Manual Diff Total Counted Seg Neuts % (Manual) Lymphocytes % (Manual) Monocytes % (Manual) Eosinophils % (Manual) Basophils % (Manual) Nucleated RBC % Seg Neutrophils # Man Band Neutrophils # Lymphocytes # (Manual) Abs React Lymphs (Man) Monocytes # (Manual) Eosinophils # (Manual) Basophils # (Manual) Metamyelocytes # Myelocytes # Promyelocytes # Blast Cells # WBC Morphology Hypersegmented Neuts Hyposegmented Neuts Hypogranular Neuts Smudge Cells Toxic Granulation Toxic Vacuolation Dohle Bodies Pelger-Huet Anomaly Gerri Rods Platelet Estimate Clumped Platelets Plt Clumps, EDTA Large Platelets Giant Platelets Platelet Satelliting Plt Morphology Comment RBC Morphology Dimorphic RBCs Polychromasia Hypochromasia Poikilocytosis Anisocytosis Microcytosis Macrocytosis Spherocytes Pappenheimer Bodies Sickle Cells Target Cells Tear Drop Cells Ovalocytes Helmet Cells Santamaria-Luling Bodies Douglas Rings [place] Cells Bite Cells Crenated Cell Elliptocytes Acanthocytes (Spur) Rouleaux Hemoglobin C Crystals Schistocytes Malaria parasites Ori Bodies Hem Pathologist Commnt PT 13.8 INR 1.08 APTT Sodium 132 L Potassium 3.4 L Chloride 95.9 L Carbon Dioxide 25 Anion Gap 15 BUN 12 Creatinine 0.6 L Estimated GFR > 60 BUN/Creatinine Ratio 20 Glucose 104 H Calcium 7.8 L Total Bilirubin Direct Bilirubin Indirect Bilirubin AST ALT Alkaline Phosphatase Troponin T Total Protein Albumin Albumin/Globulin Ratio Lipase Urine Color Urine Turbidity Urine pH Ur Specific [place] Urine Protein Urine Glucose (UA) Urine Ketones Urine Blood Urine Nitrite Urine Bilirubin Urine Ictotest Urine Urobilinogen Ur Leukocyte Esterase Urine WBC (Auto) Urine RBC (Auto) U Epithel Cells (Auto) Urine Mucus Plasma/Serum Alcohol Hepatitis A IgM Ab Hep Bs Antigen Hep B Core IgM Ab Hepatitis C Antibody Assessment and Plan * Ascites - most likely EtOh hepatitis +/- cirrhosis, will undergo para and start low dose diuretics and low sodium diet. Diagnostic/therapeutic para. When do para please draw cell count with diff, cytology, Culture, albumin, & triglycerides * Regarding elevated LFT's, likely EtOh hepatitis +/- cirrhosis. Maddrey's Discriminant Function for Alcoholic Hepatitis is only 10, so no indication for steroids. EtOh cessation and supportive care. Avoid opiates and attempt to minimize benzodiazepines, though patient will likely require as he will likely go into withdrawal now that he is not drinking I had a mary conversation with him about his overall very poor prognosis if he continues to drink alcohol. Strongly suggest consideration of inpatient rehab versus at a bare minimum outpatient rehab such as with alcoholic Anonymous and he should rectitis with his alcoholic friends in order to decrease his risk of recidivism. If he can completely stop drinking alcohol there is a decent chance for the patient to have return of liver function and a good prognosis After patient gets his paracentesis, if he continues to do well and his renal function remained stable can consider discharge with outpatient follow-up - Patient Problems (1) Alcohol abuse Current Visit: Yes Status: Acute (2) Alcoholic hepatitis with ascites Current Visit: Yes Status: Acute (3) Hyponatremia Current Visit: Yes Status: Acute
[2020-07-15] MEDS ORDERED: FLU VACC QUAD 2020-2021 (6 months +)/PF 60 0.5 ML SYRINGE IM ONE (12:00)
--- NOTE | 2020-07-15 13:18 | Progress Note ---
Assessment and Plan Assessment and plan: --Alcoholic cirrhosis; Continue current management Counseling done strongly advised to quit alcohol intake, Supportive care --Alcohol hepatitis; Quit alcohol intake, monitor transaminases Supportive care --Ascites; GI evaluated the patient CT-guided thoracentesis and fluid analysis--Hyponatremia; Moderate control, continue IV fluids Salt replacement, supportive care --History of of alcohol use Advised to quit alcohol intake Advised to seek alcohol rehab programs Closely monitor for withdrawal symptoms --Alcohol withdrawal symptoms; Chronic alcohol use, CIWA protocol Patient will consult to quit alcohol intake once medically stable Patient advised voluntary alcohol rehabilitation when stable --Closely monitor the patient and adjust the management as needed plan of care reviewed with the patient and his nurse --Full CODE STATUS Extended care 35 minutes New CIWA protocol History Interval history: I have seen and examined the patient at the bedside Patient's chart and medications reviewed Patient was admitted with alcohol intoxication abdominal pain and distention and ascites Patient has mild tremulousness on CIWA protocol Vital signs noted Hospitalist Physical - Constitutional Vitals: Temp Pulse Resp BP Pulse Ox 98.8 F 84 20 134/89 96 07/15/20 08:15 07/15/20 08:32 07/15/20 08:15 07/15/20 08:15 07/15/20 08:15 General appearance: Present: no acute distress, well-nourished - EENT Eyes: Present: PERRL, EOM intact - Neck Neck: Present: supple, normal ROM - Respiratory Respiratory effort: normal Respiratory: bilateral: diminished, negative: rales, rhonchi, wheezing - Cardiovascular Rhythm: regular Heart Sounds: Present: S1 & S2 - Extremities Extremities: no ischemia, No edema - Abdominal General gastrointestinal: soft, non-tender, non-distended, normal bowel sounds - Integumentary Integumentary: Present: clear, warm - Psychiatric Psychiatric: appropriate mood/affect, cooperative - Neurologic Neurologic: moves all extremities HEART Score - HEART Score Troponin: Troponin T < 0.010 ng/mL (0.00-0.029) 07/14/20 15:33 Results - Labs CBC & Chem 7: 07/15/20 08:18 07/15/20 08:18 Labs: Laboratory Last Values WBC 5.3 K/mm3 (4.5-11.0) 07/15/20 08:18 RBC 3.49 M/mm3 (3.65-5.03) L 07/15/20 08:18 Hgb 12.4 gm/dl (11.8-15.2) 07/15/20 08:18 Hct 35.2 % (35.5-45.6) L 07/15/20 08:18 MCV 101 fl (84-94) H 07/15/20 08:18 MCH 36 pg (28-32) H 07/15/20 08:18 MCHC 35 % (32-34) H 07/15/20 08:18 RDW 18.1 % (13.2-15.2) H 07/15/20 08:18 Plt Count 212 K/mm3 (140-440) 07/15/20 08:18 Add Manual Diff Complete 07/15/20 08:18 Total Counted 100 07/15/20 08:18 Seg Neuts % (Manual) 76.0 % (40.0-70.0) H 07/15/20 08:18 Lymphocytes % (Manual) 10.0 % (13.4-35.0) L 07/15/20 08:18 Monocytes % (Manual) 10.0 % (0.0-7.3) H 07/15/20 08:18 Eosinophils % (Manual) 2.0 % (0.0-4.3) 07/15/20 08:18 Basophils % (Manual) 2.0 % (0.0-1.8) H 07/15/20 08:18 Nucleated RBC % Not Reportable 07/15/20 08:18 Seg Neutrophils # Man 4.0 K/mm3 (1.8-7.7) 07/15/20 08:18 Band Neutrophils # 0.0 K/mm3 07/15/20 08:18 Lymphocytes # (Manual) 0.5 K/mm3 (1.2-5.4) L 07/15/20 08:18 Abs React Lymphs (Man) 0.0 K/mm3 07/15/20 08:18 Monocytes # (Manual) 0.5 K/mm3 (0.0-0.8) 07/15/20 08:18 Eosinophils # (Manual) 0.1 K/mm3 (0.0-0.4) 07/15/20 08:18 Basophils # (Manual) 0.1 K/mm3 (0.0-0.1) 07/15/20 08:18 Metamyelocytes # 0.0 K/mm3 07/15/20 08:18 Myelocytes # 0.0 K/mm3 07/15/20 08:18 Promyelocytes # 0.0 K/mm3 07/15/20 08:18 Blast Cells # 0.0 K/mm3 07/15/20 08:18 WBC Morphology Not Reportable 07/15/20 08:18 Hypersegmented Neuts Not Reportable 07/15/20 08:18 Hyposegmented Neuts Not Reportable 07/15/20 08:18 Hypogranular Neuts Not Reportable 07/15/20 08:18 Smudge Cells Not Reportable 07/15/20 08:18 Toxic Granulation Not Reportable 07/15/20 08:18 Toxic Vacuolation Not Reportable 07/15/20 08:18 Dohle Bodies Not Reportable 07/15/20 08:18 Pelger-Huet Anomaly Not Reportable 07/15/20 08:18 Gerri Rods Not Reportable 07/15/20 08:18 Platelet Estimate Consistent w auto 07/15/20 08:18 Clumped Platelets Not Reportable 07/15/20 08:18 Plt Clumps, EDTA Not Reportable 07/15/20 08:18 Large Platelets Not Reportable 07/15/20 08:18 Giant Platelets Not Reportable 07/15/20 08:18 Platelet Satelliting Not Reportable 07/15/20 08:18 Plt Morphology Comment Not Reportable 07/15/20 08:18 RBC Morphology Not Reportable 07/15/20 08:18 Dimorphic RBCs Not Reportable 07/15/20 08:18 Polychromasia Not Reportable 07/15/20 08:18 Hypochromasia Not Reportable 07/15/20 08:18 Poikilocytosis 1+ 07/15/20 08:18 Anisocytosis 1+ 07/15/20 08:18 Microcytosis Not Reportable 07/15/20 08:18 Macrocytosis 1+ 07/15/20 08:18 Spherocytes Not Reportable 07/15/20 08:18 Pappenheimer Bodies Not Reportable 07/15/20 08:18 Sickle Cells Not Reportable 07/15/20 08:18 Target Cells 1+ 07/15/20 08:18 Tear Drop Cells Not Reportable 07/15/20 08:18 Ovalocytes Not Reportable 07/15/20 08:18 Helmet Cells Not Reportable 07/15/20 08:18 Santamaria-Ber[place] Bodies Not Reportable 07/15/20 08:18 [place] Rings Not Reportable 07/15/20 08:18 [place] Cells Not Reportable 07/15/20 08:18 Bite Cells Not Reportable 07/15/20 08:18 Crenated Cell Not Reportable 07/15/20 08:18 Elliptocytes Not Reportable 07/15/20 08:18 Acanthocytes (Spur) Not Reportable 07/15/20 08:18 Rouleaux Not Reportable 07/15/20 08:18 Hemoglobin C Crystals Not Reportable 07/15/20 08:18 Schistocytes Not Reportable 07/15/20 08:18 Malaria parasites Not Reportable 07/15/20 08:18 Ori Bodies Not Reportable 07/15/20 08:18 Hem Pathologist Commnt No 07/15/20 08:18 PT 13.8 Sec. (12.2-14.9) 07/15/20 08:18 INR 1.08 (0.87-1.13) 07/15/20 08:18 APTT 29.7 Sec. (24.2-36.6) 07/14/20 20:46 Sodium 132 mmol/L (137-145) L 07/15/20 08:18 Potassium 3.4 mmol/L (3.6-5.0) L 07/15/20 08:18 Chloride 95.9 mmol/L (98-107) L 07/15/20 08:18 Carbon Dioxide 25 mmol/L (22-30) 07/15/20 08:18 Anion Gap 15 mmol/L 07/15/20 08:18 BUN 12 mg/dL (9-20) 07/15/20 08:18 Creatinine 0.6 mg/dL (0.8-1.3) L 07/15/20 08:18 Estimated GFR > 60 ml/min 07/15/20 08:18 BUN/Creatinine Ratio 20 % 07/15/20 08:18 Glucose 104 mg/dL (75-100) H 07/15/20 08:18 Calcium 7.8 mg/dL (8.4-10.2) L 07/15/20 08:18 Total Bilirubin 6.60 mg/dL (0.1-1.2) H 07/14/20 20:46 Direct Bilirubin 4.3 mg/dL (0-0.2) H 07/14/20 20:46 Indirect Bilirubin 2.3 mg/dL 07/14/20 20:46 AST 211 units/L (5-40) H 07/14/20 20:46 ALT 87 units/L (7-56) H 07/14/20 20:46 Alkaline Phosphatase 533 units/L (35-129) H 07/14/20 20:46 Troponin T < 0.010 ng/mL (0.00-0.029) 07/14/20 15:33 Total Protein 5.0 g/dL (6.3-8.2) L 07/14/20 20:46 Albumin 2.6 g/dL (3.9-5) L 07/14/20 20:46 Albumin/Globulin Ratio 1.1 % 07/14/20 20:46 Lipase 44 units/L (13-60) 07/14/20 15:33 Urine Color [place] (Yellow) 07/14/20 17:09 Urine Turbidity Clear (Clear) 07/14/20 17:09 Urine pH 5.0 (5.0-7.0) 07/14/20 17:09 Ur Specific [place] 1.026 (1.003-1.030) 07/14/20 17:09 Urine Protein <15 mg/dl mg/dL (Negative) 07/14/20 17:09 Urine Glucose (UA) Neg mg/dL (Negative) 07/14/20 17:09 Urine Ketones Neg mg/dL (Negative) 07/14/20 17:09 Urine Blood Neg (Negative) 07/14/20 17:09 Urine Nitrite Neg (Negative) 07/14/20 17:09 Urine Bilirubin Mod (Negative) 07/14/20 17:09 Urine Ictotest Positive (Negative) 07/14/20 17:09 Urine Urobilinogen 4.0 mg/dL (<2.0) 07/14/20 17:09 Ur Leukocyte Esterase Neg (Negative) 07/14/20 17:09 Urine WBC (Auto) 3.0 /HPF (0.0-6.0) 07/14/20 17:09 Urine RBC (Auto) 1.0 /HPF (0.0-6.0) 07/14/20 17:09 U Epithel Cells (Auto) < 1.0 /HPF (0-13.0) 07/14/20 17:09 Urine Mucus Few /HPF 07/14/20 17:09 Plasma/Serum Alcohol 0.13 % (0-0.07) H 07/14/20 20:46 Hepatitis A IgM Ab Non-reactive (NonReactive) 07/14/20 15:33 Hep Bs Antigen Non-reactive (Negative) 07/14/20 15:33 Hep B Core IgM Ab Non-reactive (NonReactive) 07/14/20 15:33 Hepatitis C Antibody Non-reactive (NonReactive) 07/14/20 15:33 Kapoor/IV: Voiding Method Urinal IV Catheter Type [Left Peripheral IV Antecubital] Active Medications - Current Medications Current Medications: Generic Name Dose Route Start Last Admin Trade Name Freq PRN Reason Stop Dose Admin Furosemide 40 mg 07/15/20 12:00 Furosemide 40 Mg Tab PO QDAY SUNDAR Lorazepam 2 mg 07/14/20 21:40 07/15/20 10:13 Lorazepam 2 Mg Tab PO 2 mg Q1HR PRN Administration CIWA-Ar 8-15 Lorazepam 4 mg 07/14/20 21:40 Lorazepam 2 Mg Tab PO Q1HR PRN CIWA-Ar 16-25 Lorazepam 4 mg 07/14/20 21:40 Lorazepam 2 Mg/Ml Vial IV Q15MIN PRN CIWA-Ar >25 Magnesium Hydroxide 30 ml 07/14/20 22:02 Magnesium Hydroxide (Mom) Oral Liqd Udc PO Q4H PRN Constipation Morphine Sulfate 2 mg 07/14/20 22:02 Morphine 2 Mg/1 Ml Inj IV Q4H PRN Pain, Moderate (4-6) Ondansetron HCl 4 mg 07/14/20 22:02 Ondansetron 4 Mg/2 Ml Inj IV Q8H PRN Nausea And Vomiting Sodium Chloride 10 ml 07/15/20 10:00 07/15/20 10:13 Sodium Chloride 0.9% 10 Ml Flush Syringe IV 10 ml BID SUNDAR Administration Sodium Chloride 10 ml 07/14/20 22:02 Sodium Chloride 0.9% 10 Ml Flush Syringe IV PRN PRN LINE FLUSH Spironolactone 100 mg 07/15/20 12:00 Spironolactone 50 Mg Tab PO QDAY SUNDAR
[2020-07-15] MEDS: FUROSEMIDE 40 MG TAB PO SCH (13:19)
[2020-07-15] MEDS: SPIRONOLACTONE 50 MG TAB PO SCH (13:19)
[2020-07-16] MEDS ORDERED: POTASSIUM CHLORIDE ER 20 MEQ TAB PO ONE (09:00)
[2020-07-16 09:12] LABS: Alanine Aminotransferase 72 units/L (7-56); Albumin 2.4 g/dL (3.9-5); Blood Urea Nitrogen 7 mg/dL (9-20); Hemolysis Index 0
[2020-07-16 09:19] LABS: BUN/Creatinine Ratio 12
--- NOTE | 2020-07-16 09:27 | Ultrasound Report ---
ULTRASOUND ABDOMEN LIMITED HISTORY: Ascites TECHNIQUE: Grayscale ultrasound FINDINGS: This examination was scheduled as an ultrasound guided paracentesis. Initial scan of all 4 quadrants demonstrates only trace ascites in the right upper quadrant. No pocket large enough for par acentesis was found. IMPRESSION: Trace to small perihepatic ascites. Ultrasound paracentesis could not be performed. Signer Name: Buzz Lynn Jr, MD Signed: 07/16/2020 9:22 AM Workstation Name: [id number]
[2020-07-16 10:02] LABS: Hematocrit 32.7 % (35.5-45.6); Hemoglobin 11.4 gm/dl (11.8-15.2)
[2020-07-16 10:12] LABS: INR 0.97 (0.87-1.13)
[2020-07-16] MEDS: SPIRONOLACTONE 50 MG TAB PO SCH (10:30)
[2020-07-16] MEDS: FUROSEMIDE 40 MG TAB PO SCH (10:30)
--- NOTE | 2020-07-16 11:34 | Gastroenterology Progress Note ---
Assessment and Plan * Ascites -improving, may discharge patient on Lasix 20 mg and Aldactone 50 mg and low-sodium diet. If patient can continue with his alcohol cessation anticipate being able to stop diuretics soon * Regarding elevated LFT's, consistent with EtOh hepatitis +/- cirrhosis, though given the rapid improvement in ascites I am optimistic patient may not be cirrhotic. * Maddrey's Discriminant Function for Alcoholic Hepatitis is low, so no ind ication for steroids. EtOh cessation and supportive care. Avoid opiates and attempt to minimize benzodiazepines, though patient will likely require as he will likely go into withdrawal now that he is not drinking From GI perspective patient can be discharged once electrolytes are repleted with outpatient follow-up with me in 2 to 4 weeks Patient requires outpatient versus inpatient alcohol rehabilitation GI will sign off please call back with any questions or concerns - Patient Problems (1) Alcohol abuse Current Visit: Yes Status: Acute (2) Alcoholic hepatitis with ascites Current Visit: Yes Status: Acute (3) Hyponatremia Current Visit: Yes Status: Acute Subjective Date of service: 07/16/20 Principal diagnosis: Alcoholic hepatitis Interval history: Patient unable to have paracentesis has not enough fluid to tap He reports abdominal distention and pain are moderately improved He reports lower extremity edema is moderately improved but still present Objective - Constitutional Vitals: Temp Pulse Resp BP Pulse Ox 98.3 F 97 H 18 112/71 95 07/16/20 08:42 07/16/20 08:42 07/16/20 08:42 07/16/20 08:42 07/16/20 08:42 General appearance: no acute distress - EENT Eyes: scleral icterus - Neck Neck: supple - Respiratory Respiratory effort: normal - Cardiovascular Rhythm: regular - Gastrointestinal General gastrointestinal: Present: soft - Labs CBC & Chem 7: 07/16/20 08:10 07/16/20 08:10 Labs: Laboratory Results - last 24 hr 07/16/20 07/16/20 07/16/20 08:10 08:10 08:10 Hgb 11.4 L Hct 32.7 L PT 12.7 INR 0.97 Sodium 131 L Potassium 3.3 L Chloride 94.8 L Carbon Dioxide 32 H D Anion Gap 8 BUN 7 L Creatinine 0.6 L Estimated GFR > 60 BUN/Creatinine Ratio 12 Glucose 115 H Calcium 8.0 L Phosphorus 2.50 Magnesium 1.60 L Total Bilirubin 6.90 H AST 164 H ALT 72 H Alkaline Phosphatase 442 H Total Protein 4.8 L Albumin 2.4 L Albumin/Globulin Ratio 1.0
[2020-07-16] MEDS ORDERED: MAGNESIUM SULFATE 2 GM/50 ML BAG IV SCH (14:00)
--- NOTE | 2020-07-16 14:49 | Discharge Summary ---
Providers - Providers Date of Admission: 07/15/20 01:16 Attending physician: CECELIA SIMONS 07/14/20 22:02 Consult to Physician [CONS] Routine Comment: Consulting Provider: LUDWIN BIANCHI Physician Instructions: Reason For Exam: Ascites,alcoholic hepatitis 07/14/20 22:09 Consult to Interventional Radiology [CONS] Routine Consulting Provider: DESTINI DANIELSON Reason For Exam: Ascites Place consult to:: Dr. Danielson Notified:: Wilfred Minor Was contact made?: Yes If yes, spoke with:: Dr. Danielson Comment:: Dr. Danielson is aware of consultation. Rounded on patient 07/15/2020 @0941 Primary care physician: SWEATBAND MAKER Hospitalization Condition: Stable Hospital course: Patient is a 35-year-old current tobacco abuse (half a pack per day x20 years) and alcohol abuse (5 to 6 packs of beer daily with 5 shots of hard liquor) who presented to the emergency department on 07/15 with complaints of abdominal distention and pain with lower extremity swelling which has been ongoing for about a month. Recommend emergency department today chest x-ray with no acute evidence of acute disease, CT abdomen/pelvis showed moderate ascites and mesenteric edema of uncertain etiology, transaminitis and mild hyponatremia. GI was consulted and patient was planned for a paracentesis today. However there was no isolated large volume of fluid in his abdomen. This morning patient had hypokalemia and hypomagnesemia which have been repleted. Patient's discharge is pending upon a repeat BMP and magnesium. Patient will be discharged with Lasix, spironolactone and a low-sodium diet. Alcohol cessation strongly encouraged. Patient needs to follow-up with GI within 2 to 4 weeks of discharge. He wanted to follow-up with his primary care physician within 1 to 2 weeks of discharge. Alcohol cirrhosis -GI consulted, appreciate recommendations -/ ultrasound-guided paracentesis unable to be performed due to no large volume fluid pocket identified -Encourage alcohol cessation -1/2 hepatitis panel nonreactive -1/2 plasma/serum alcohol: 0.13 Transaminitis -Presented with T bili 6.5, D bili 4.5, AST 208, ALT 98, alk phos 501 -1/ T bili 6.6, D bili 4.3, AST 211, ALT 87, alk phos 53 -1/4T bili 6.9, AST 164, ALT 72, ALT 442 -Secondary to alcohol abuse -Alcohol cessation strongly encouraged Hyponatremia -Presented with a sodium of 130, 1/3 sodium 132, 1/4 sodium 131 -Encourage alcohol cessation -Continue to monitor neuro status -Charged with sodium tablets for a couple of days -Discharge sodium 129 Hypokalemia -1/3 potassium 3.4, 1/4 potassium 3.3, discharge potassium 3.8 -Repleted -Related to alcohol abuse, cessation strongly encouraged Hypochloremia -Presented with a chloride of 96, 1/3 chloride 95.9, 1/4 chloride 94.8 -Alcohol cessation strongly encouraged -Discharged with sodium tablets for couple days -Discharge chloride 90.9 Hypomagnesemia -1/4 magnesium 1.6 -Repleted -Discharge magnesium 2.5 Ascites -GI evaluated the patient, unable to perform paracentesis due to lack of large fluid collection -Follow-up with GI outpatient in 3 to 4 weeks of discharge History of of alcohol use -Advised to quit alcohol intake -Advised to seek alcohol rehab programs Alcohol withdrawal symptoms -Chronic alcohol use, -CIWA protocol -Patient will consult to quit alcohol intake once medically stable -Patient advised voluntary alcohol rehabilitation when stable Severe malnutrition; -nutrition supplements and supportive care -Nutrition consult Moderate ascites; -CT-guided abdominal paracentesis unable to be performed due to lack of large fluid collection Tobacco abuse -Patient is a current half a pack per day smoker -Encourage tobacco cessation -Utilize tobacco cessation aids such as nicotine patches and gum Disposition: DC-01 TO HOME OR SELFCARE Time spent for discharge: 35 Core Measure Documentation - Palliative Care Palliative Care/ Comfort Measures: Not Applicable - Core Measures Any of the following diagnoses?: none Exam - Constitutional Vitals: Temp Pulse Resp BP Pulse Ox 97.4 F L 86 18 131/87 98 07/16/20 12:49 07/16/20 12:49 07/16/20 12:49 07/16/20 12:49 07/16/20 12:49 General appearance: Present: no acute distress - EENT Eyes: Present: PERRL, EOM intact ENT: hearing intact, clear oral mucosa, dentition normal - Neck Neck: Present: normal ROM - Respiratory Respiratory effort: normal Respiratory: bilateral: CTA - Cardiovascular Rhythm: regular Heart Sounds: Present: S1 & S2. Absent: systolic murmur, diastolic murmur - Extremities Extremities: no ischemia, pulses intact, pulses symmetrical, No edema, normal temperature, normal color, Full ROM Peripheral Pulses: within normal limits - Abdominal General gastrointestinal: Present: soft, non-tender, non-distended, normal bowel sounds - Integumentary Integumentary: Present: clear, warm, dry - Musculoskeletal Musculoskeletal: strength equal bilaterally - Psychiatric Psychiatric: appropriate mood/affect, cooperative Plan Activity: advance as tolerated Diet: low salt, per dietitian instruction Special Instructions: smoking cessation Additional Instructions: Present to nearest emergency department contact primary care physician if you experience worsening symptoms. Follow-up with your primary care physician within 1 to 2 weeks of discharge. Follow-up with GI within 3 to 4 weeks of discharge. Alcohol cessation and tobacco cessation is strongly encouraged. Follow up with: DESTINI HAMILTON MD [Staff Physician] - 7 Days Forms: Work/School Release Form Prescriptions: Spironolactone [Aldactone] 100 mg PO QDAY #60 tablet Furosemide [Lasix TAB] 40 mg PO QDAY #30 tablet Magnesium Oxide [Mag-Ox] 400 mg PO QDAY #7 tablet Folic Acid/Multivit,Iron,[place] [One Daily Maximum Tablet] 1 each PO DAILY #30 tablet Sodium Chloride 1 gm PO QDAY #3 tablet Thiamine [Vitamin B-1] 100 mg PO QDAY #30 tablet
[2020-07-16 16:18] LABS: Blood Urea Nitrogen 8 mg/dL (9-20); Calcium 8.3 mg/dL (8.4-10.2); Hemolysis Index 28
[2020-07-16 16:21] LABS: BUN/Creatinine Ratio 16
[2020-07-16 17:13] VITALS: BP 118/75
== END 2020-07-16 17:40 | disposition home or self-care (01) ==
LOC: ED 14:28 → 4A 07-15 01:16
PROVIDERS: ADMIT Internal Medicine Geriatric Medicine; ATTEND Internal Medicine
DX: K70.11 Alcoholic hepatitis with ascites (principal); E87.1 Hypo-osmolality and hyponatremia; F10.10 Alcohol abuse, uncomplicated; F17.210 Nicotine dependence, cigarettes, uncomplicated; E87.6 Hypokalemia; E87.8 Other disorders of electrolyte and fluid balance, not elsewhere classified; E83.42 Hypomagnesemia; R74.01 Elevation of levels of liver transaminase levels; E43 Unspecified severe protein-calorie malnutrition; Z68.25 Body mass index [BMI] 25.0-25.9, adult
CPT/HCPCS: 36415; 71045; 74177; 76705; 80048; 80053; 80074; 80076; 81001; 83690; 83735; 84100; 84484; 85014; 85018; 85025; 85610; 85730; 96374; 96375; 99285; 99406; G0378; J1885; J1940; J7040; Q9967; 80320; 85007; G0480